=== PATIENT | female | born 1945 | race Caucasian/White ===

== ENCOUNTER → 2016-12-31 | Outpatient (CLI) | payer MEDICARE, MEDICAID | LOC: MAMMO 12:47 | DX: Z12.31 Encounter for screening mammogram for malignant neoplasm of breast (principal); N63 Unspecified lump in breast | CPT/HCPCS: G0202 ==

== ENCOUNTER → 2017-01-02 | Outpatient (CLI) | payer MEDICARE, MEDICAID | LOC: MAMMO 12:22 | DX: N63 Unspecified lump in breast (principal) ==

== ENCOUNTER → 2017-09-09 | Outpatient (CLI) | payer MEDICARE, MEDICAID ==
[2012-03-20 09:34] VITALS: BP 140/81
== END ==
LOC: LAB 09:07
DX: I10 Essential (primary) hypertension (principal); K63.5 Polyp of colon; E78.5 Hyperlipidemia, unspecified; F32.9 Major depressive disorder, single episode, unspecified

== ENCOUNTER → 2018-04-06 | Outpatient (CLI) | payer MEDICARE, MEDICAID ==
[2012-03-20 09:34] VITALS: BP 140/81
[2018-04-06 17:33] LABS: HEMATOCRIT 38.1 % (37.0-47.0); MEAN PLATELET VOLUME 11.2 fl (7.4-10.4); RED BLOOD COUNT 4.63 M/mm3 (4.10-5.30); RED CELL DISTRIBUTION WIDTH 15.3 % (11.5-14.5); WHITE BLOOD COUNT 7.6 K/mm3 (4.8-10.8)
== END ==
LOC: LAB 16:18
PROVIDERS: Family Medicine
DX: I10 Essential (primary) hypertension (principal); E03.9 Hypothyroidism, unspecified; E78.5 Hyperlipidemia, unspecified

== ENCOUNTER → 2018-04-08 | Outpatient (CLI) | payer MEDICARE, MEDICAID ==
[2012-03-20 09:34] VITALS: BP 140/81
== END ==
LOC: RAD 08:28
DX: R29.6 Repeated falls (principal)
CPT/HCPCS: Q9967

== ENCOUNTER → 2018-04-22 | Outpatient (CLI) | payer MEDICARE, MEDICAID ==
[2012-03-20 09:34] VITALS: BP 140/81
== END ==
LOC: MAMMO 09:57
DX: Z12.31 Encounter for screening mammogram for malignant neoplasm of breast (principal); Z98.890 Other specified postprocedural states

== ENCOUNTER → 2018-06-18 | Outpatient (CLI) | payer MEDICARE, MEDICAID ==
[2012-03-20 09:34] VITALS: BP 140/81
== END ==
LOC: RAD 09:48
DX: K43.9 Ventral hernia without obstruction or gangrene (principal); K80.80 Other cholelithiasis without obstruction
CPT/HCPCS: Q9967

== ENCOUNTER → 2019-02-05 | Outpatient (CLI) | payer MEDICARE, MEDICAID ==
[2012-03-20 09:34] VITALS: BP 140/81
== END ==
LOC: RAD 15:28
DX: M19.011 Primary osteoarthritis, right shoulder (principal)

== ENCOUNTER → 2019-02-17 | Outpatient (CLI) | payer MEDICARE, MEDICAID ==
[2012-03-20 09:34] VITALS: BP 140/81
== END ==
LOC: RAD 08:36
DX: M19.011 Primary osteoarthritis, right shoulder (principal)

== ENCOUNTER → 2019-05-10 | Outpatient (CLI) | payer MEDICARE, MEDICAID ==
[2012-03-20 09:34] VITALS: BP 140/81
[2019-05-10 13:47] LABS: EOS # 0.2 (0.04-0.40); HEMATOCRIT 41.7 % (37.0-47.0); HEMOGLOBIN 13.2 g/dL (12.5-16.0); LYMPH# 1.3 (1.50-4.00); MEAN CELL VOLUME 85 fl (78-100); MEAN CORPUSCULAR HEMOGLOBIN 27 pg (27-31); MEAN CORPUSCULAR HGB CONC 32 g/dL (33-37); MEAN PLATELET VOLUME 9.8 fl (7.4-10.4); MONO # 0.7 (0.20-0.80); NEU # 5.3 (1.40-6.50); PLATELET COUNT 226 K/mm3 (130-400); RED BLOOD COUNT 4.91 M/mm3 (4.10-5.30); RED CELL DISTRIBUTION WIDTH 14.4 % (11.5-14.5); WHITE BLOOD COUNT 7.4 K/mm3 (4.8-10.8)
[2019-05-10 14:09] LABS: CALCIUM 9.2 mg/dL (8.3-10.5); TOTAL BILIRUBIN 0.5 mg/dL (0.2-1.2); TOTAL PROTEIN 6.7 g/dL (6.2-8.1)
== END ==
LOC: LAB 13:35
PROVIDERS: Family Medicine
DX: Z01.419 Encounter for gynecological examination (general) (routine) without abnormal findings (principal); E78.5 Hyperlipidemia, unspecified; I10 Essential (primary) hypertension; E55.9 Vitamin D deficiency, unspecified

== ENCOUNTER → 2019-12-21 | Outpatient (CLI) | payer MEDICARE, MEDICAID ==
[2012-03-20 09:34] VITALS: BP 140/81
== END ==
LOC: RAD 15:32 → LAB 15:32
PROVIDERS: Family Medicine
DX: R91.8 Other nonspecific abnormal finding of lung field (principal); R06.00 Dyspnea, unspecified; R42 Dizziness and giddiness; R51 Headache
CPT/HCPCS: Q9967

== ENCOUNTER → 2019-12-27 | Outpatient (CLI) | payer MEDICARE, MEDICAID ==
[2012-03-20 09:34] VITALS: BP 140/81
== END ==
LOC: RAD 14:28
DX: M25.422 Effusion, left elbow (principal)

== ENCOUNTER → 2020-05-10 | Outpatient (CLI) | payer MEDICARE, MEDICAID ==
[2012-03-20 09:34] VITALS: BP 140/81
[2020-05-10 12:22] LABS: ALBUMIN 4.4 g/dL (3.4-4.8); POTASSIUM 4.2 mmol/L (3.5-5.1)
[2020-05-10 12:23] LABS: CALCIUM 9.1 mg/dL (8.3-10.5)
[2020-05-10 12:24] LABS: TOTAL PROTEIN 6.8 g/dL (6.2-8.1)
[2020-05-10 12:25] LABS: EOS # 0.2 (0.04-0.40); EOS % 1.9 % (1.0-5.0); HEMATOCRIT 43.9 % (37.0-47.0); HEMOGLOBIN 13.9 g/dL (12.5-16.0); LYMPH# 1.3 (1.50-4.00); MEAN CELL VOLUME 85 fl (78-100); MEAN CORPUSCULAR HEMOGLOBIN 27 pg (27-31); MEAN CORPUSCULAR HGB CONC 32 g/dL (33-37); MEAN PLATELET VOLUME 10.4 fl (7.4-10.4); MONO # 0.8 (0.20-0.80); NEU # 5.6 (1.40-6.50); PLATELET COUNT 233 K/mm3 (130-400); RED BLOOD COUNT 5.17 M/mm3 (4.10-5.30)
[2020-05-10 12:26] LABS: TOTAL BILIRUBIN 0.5 mg/dL (0.2-1.2)
== END ==
LOC: LAB 11:59
PROVIDERS: Family Medicine
DX: Z01.419 Encounter for gynecological examination (general) (routine) without abnormal findings (principal); E78.5 Hyperlipidemia, unspecified; E55.9 Vitamin D deficiency, unspecified; I10 Essential (primary) hypertension

== ENCOUNTER → 2020-05-10 | Outpatient (CLI) | payer MEDICARE, MEDICAID ==
[2012-03-20 09:34] VITALS: BP 140/81
== END ==
LOC: MAMMO 09:54
DX: Z12.31 Encounter for screening mammogram for malignant neoplasm of breast (principal)

== ENCOUNTER → 2020-05-22 | Outpatient (CLI) | payer MEDICARE, MEDICAID ==
[2012-03-20 09:34] VITALS: BP 140/81
== END ==
LOC: LAB 12:00
DX: Z01.818 Encounter for other preprocedural examination (principal); Z20.828 Contact with and (suspected) exposure to other viral communicable diseases

== ENCOUNTER → 2020-05-25 | Day surgery (SDC) | payer MEDICARE, MEDICAID ==
[2012-03-20 09:34] VITALS: BP 140/81
== END ==
LOC: MSO 07:06
DX: K21.9 Gastro-esophageal reflux disease without esophagitis (principal); K44.9 Diaphragmatic hernia without obstruction or gangrene; K25.3 Acute gastric ulcer without hemorrhage or perforation; K29.70 Gastritis, unspecified, without bleeding; I10 Essential (primary) hypertension; I25.10 Atherosclerotic heart disease of native coronary artery without angina pectoris; M19.90 Unspecified osteoarthritis, unspecified site; E66.01 Morbid (severe) obesity due to excess calories; E78.00 Pure hypercholesterolemia, unspecified; Z90.710 Acquired absence of both cervix and uterus; Z96.641 Presence of right artificial hip joint; Z96.653 Presence of artificial knee joint, bilateral; Z90.49 Acquired absence of other specified parts of digestive tract; Z91.040 Latex allergy status; Z88.6 Allergy status to analgesic agent; Z88.2 Allergy status to sulfonamides; Z20.828 Contact with and (suspected) exposure to other viral communicable diseases
CPT/HCPCS: 00731; J2704; J7120

== ENCOUNTER → 2020-06-27 | Outpatient (CLI) | payer MEDICARE, MEDICAID ==
[2012-03-20 09:34] VITALS: BP 140/81
[2020-06-27 11:04] LABS: EOS # 0.2 (0.04-0.40); EOS % 2.3 % (1.0-5.0); HEMATOCRIT 40.9 % (37.0-47.0); HEMOGLOBIN 12.8 g/dL (12.5-16.0); LYMPH# 1.5 (1.50-4.00); MEAN CELL VOLUME 86 fl (78-100); MEAN CORPUSCULAR HEMOGLOBIN 27 pg (27-31); MEAN CORPUSCULAR HGB CONC 31 g/dL (33-37); MEAN PLATELET VOLUME 9.8 fl (7.4-10.4); MONO # 0.9 (0.20-0.80); NEU # 5.1 (1.40-6.50); PLATELET COUNT 211 K/mm3 (130-400); RED BLOOD COUNT 4.77 M/mm3 (4.10-5.30); WHITE BLOOD COUNT 7.7 K/mm3 (4.8-10.8)
== END ==
LOC: LAB 10:46
PROVIDERS: Family Medicine
DX: M06.9 Rheumatoid arthritis, unspecified (principal)

== ENCOUNTER → 2020-08-10 | Outpatient (CLI) | payer MEDICARE, MEDICAID ==
[2012-03-20 09:34] VITALS: BP 140/81
[2020-08-10 14:05] LABS: EOS # 0.2 (0.04-0.40); EOS % 2.2 % (1.0-5.0); HEMATOCRIT 41.2 % (37.0-47.0); LYMPH# 1.4 (1.50-4.00); MEAN CELL VOLUME 86 fl (78-100); MEAN CORPUSCULAR HEMOGLOBIN 27 pg (27-31); MEAN CORPUSCULAR HGB CONC 32 g/dL (33-37); MEAN PLATELET VOLUME 9.8 fl (7.4-10.4); MONO # 0.9 (0.20-0.80); PLATELET COUNT 220 K/mm3 (130-400); RED BLOOD COUNT 4.82 M/mm3 (4.10-5.30); RED CELL DISTRIBUTION WIDTH 14.6 % (11.5-14.5); WHITE BLOOD COUNT 8.6 K/mm3 (4.8-10.8)
[2020-08-10 14:17] LABS: ALBUMIN 4.3 g/dL (3.4-4.8); POTASSIUM 3.5 mmol/L (3.5-5.1); SODIUM 143 mmol/L (136-145)
[2020-08-10 14:18] LABS: CALCIUM 8.9 mg/dL (8.3-10.5)
[2020-08-10 14:19] LABS: GLUCOSE 102 mg/dL (65-105); TOTAL PROTEIN 7.2 g/dL (6.2-8.1)
[2020-08-10 14:20] LABS: CARBON DIOXIDE 27 mmol/L (23-31)
[2020-08-10 14:21] LABS: TOTAL BILIRUBIN 0.3 mg/dL (0.2-1.2)
[2020-08-10 14:25] LABS: AST-SGOT 20 U/L (5-34)
[2020-08-10 14:26] LABS: ALT/SGPT 17 U/L (0-55)
[2020-08-10 14:32] LABS: TROPONIN-I < 0.03 ng/mL (<0.030)
== END ==
LOC: RAD 13:53
PROVIDERS: Physician Assistant
DX: R05 Cough (principal); R06.02 Shortness of breath; R03.0 Elevated blood-pressure reading, without diagnosis of hypertension; R91.8 Other nonspecific abnormal finding of lung field; H66.92 Otitis media, unspecified, left ear

== ENCOUNTER → 2020-09-07 | Outpatient (CLI) | payer MEDICARE, MEDICAID ==
[2012-03-20 09:34] VITALS: BP 140/81
== END ==
LOC: LAB 12:13
DX: R06.02 Shortness of breath (principal)

== ENCOUNTER → 2020-09-11 | Outpatient (CLI) | payer MEDICARE, MEDICAID ==
[2012-03-20 09:34] VITALS: BP 140/81
== END ==
LOC: VAS 16:27 → RAD 16:30
DX: R06.02 Shortness of breath (principal)

== ENCOUNTER → 2021-03-02 | Outpatient (CLI) | payer MEDICARE, MEDICAID ==
[2012-03-20 09:34] VITALS: BP 140/81
== END ==
LOC: RAD 10:58
DX: K44.9 Diaphragmatic hernia without obstruction or gangrene (principal); K80.80 Other cholelithiasis without obstruction; R91.8 Other nonspecific abnormal finding of lung field

== ENCOUNTER → 2021-03-21 | Outpatient (CLI) | payer MEDICARE, MEDICAID ==
[2012-03-20 09:34] VITALS: BP 140/81
[2021-03-21 14:28] LABS: EOS # 0.2 (0.04-0.40); EOS % 2.4 % (1.0-5.0); HEMATOCRIT 39.7 % (37.0-47.0); HEMOGLOBIN 12.5 g/dL (12.5-16.0); LYMPH# 1.2 (1.50-4.00); MEAN CELL VOLUME 88 fl (78-100); MEAN CORPUSCULAR HEMOGLOBIN 28 pg (27-31); MEAN CORPUSCULAR HGB CONC 32 g/dL (33-37); MEAN PLATELET VOLUME 10.4 fl (7.4-10.4); MONO # 0.7 (0.20-0.80); NEU # 5.1 (1.40-6.50); PLATELET COUNT 218 K/mm3 (130-400); RED BLOOD COUNT 4.53 M/mm3 (4.10-5.30); RED CELL DISTRIBUTION WIDTH 14.1 % (11.5-14.5); WHITE BLOOD COUNT 7.1 K/mm3 (4.8-10.8)
[2021-03-21 14:39] LABS: ALBUMIN 4.2 g/dL (3.4-4.8)
[2021-03-21 14:41] LABS: CALCIUM 8.9 mg/dL (8.3-10.5)
[2021-03-21 14:42] LABS: TOTAL PROTEIN 6.6 g/dL (6.2-8.1)
[2021-03-21 14:44] LABS: TOTAL BILIRUBIN 0.4 mg/dL (0.2-1.2)
[2021-03-21 14:48] LABS: MAGNESIUM 2.18 mg/dL (1.60-2.60)
== END ==
LOC: LAB 13:36
PROVIDERS: Family Medicine
DX: Z13.29 Encounter for screening for other suspected endocrine disorder (principal); K90.89 Other intestinal malabsorption; R53.83 Other fatigue

== ENCOUNTER → 2021-03-22 | Outpatient (CLI) | payer MEDICARE, MEDICAID ==
[2012-03-20 09:34] VITALS: BP 140/81
[2021-03-22 15:24] LABS: URINE APPEARANCE CLEAR; URINE BILIRUBIN NEGATIVE (NEGATIVE); URINE BLOOD 50 ery/uL (NEGATIVE); URINE COLOR YELLOW; URINE GLUCOSE NEGATIVE (NEGATIVE); URINE KETONE NEGATIVE (NEGATIVE); URINE LEUKOCYTE ESTERASE NEGATIVE (NEGATIVE); URINE NITRATE NEGATIVE (NEGATIVE); URINE PROTEIN(semi-quant) TRACE mg/dL (NEGATIVE); URINE UROBILINOGEN NORMAL (NORMAL)
== END ==
LOC: LAB 14:34
PROVIDERS: Family Medicine
DX: Z13.29 Encounter for screening for other suspected endocrine disorder (principal); K90.9 Intestinal malabsorption, unspecified

== ENCOUNTER → 2021-04-23 | Outpatient (CLI) | payer MEDICARE, MEDICAID ==
[2012-03-20 09:34] VITALS: BP 140/81
== END ==
LOC: RAD 09:54
DX: N18.32 Chronic kidney disease, stage 3b (principal)

== ENCOUNTER → 2021-05-30 | Outpatient (CLI) | payer MEDICARE, MEDICAID | LOC: MAMMO 09:53 | DX: Z12.31 Encounter for screening mammogram for malignant neoplasm of breast (principal) ==

== ENCOUNTER → 2021-08-10 | Outpatient (CLI) | payer MEDICARE, MEDICAID | LOC: RAD 12:35 | DX: M79.605 Pain in left leg (principal); M25.562 Pain in left knee; M79.89 Other specified soft tissue disorders; Z96.9 Presence of functional implant, unspecified ==

== ENCOUNTER → 2021-08-17 | Outpatient (CLI) | payer MEDICARE, MEDICAID | LOC: RAD 09:54 | DX: S99.922D Unspecified injury of left foot, subsequent encounter (principal) ==

== ENCOUNTER → 2021-09-20 | Outpatient (CLI) | payer MEDICARE, MEDICAID | LOC: RAD 13:07 | DX: K44.9 Diaphragmatic hernia without obstruction or gangrene (principal); K21.9 Gastro-esophageal reflux disease without esophagitis ==

== ENCOUNTER → 2021-10-02 | Outpatient (CLI) | payer MEDICARE, MEDICAID ==
[2021-10-02 10:54] LABS: BASO # 0.02 K/mm3 (0.02-0.10); EOS # 0.19 K/mm3 (0.04-0.40); EOS % 2.5 % (1.0-5.0); HEMATOCRIT 39.7 % (37.0-47.0); HEMOGLOBIN 12.4 g/dL (12.5-16.0); LYMPH# 0.98 K/mm3 (1.50-4.00); MEAN CELL VOLUME 86 fl (78-100); MEAN CORPUSCULAR HEMOGLOBIN 27 pg (27-31); MEAN CORPUSCULAR HGB CONC 31 g/dL (33-37); MEAN PLATELET VOLUME 10.8 fl (7.4-10.4); MONO # 0.75 K/mm3 (0.20-0.80); NEU # 5.51 K/mm3 (1.40-6.50); PLATELET COUNT 195 K/mm3 (130-400); RED BLOOD COUNT 4.64 M/mm3 (4.10-5.30); RED CELL DISTRIBUTION WIDTH 14.6 % (11.5-14.5); WHITE BLOOD COUNT 7.5 K/mm3 (4.8-10.8)
[2021-10-02 11:04] LABS: ALBUMIN 3.9 g/dL (3.4-4.8); POTASSIUM 4.3 mmol/L (3.5-5.1)
[2021-10-02 11:07] LABS: TOTAL PROTEIN 6.7 g/dL (6.2-8.1)
[2021-10-02 11:09] LABS: TOTAL BILIRUBIN 0.4 mg/dL (0.2-1.2)
[2021-10-02 12:36] LABS: PARTIAL THROMBOPLASTIN TIME 24.1 SECONDS (21.0-32.0)
[2021-10-02 14:15] LABS: PROTHROMBIN TIME 10.2 SECONDS (9.0-12.0)
== END ==
LOC: LAB 10:00
PROVIDERS: Physician Assistant
DX: Z01.812 Encounter for preprocedural laboratory examination (principal)

== ENCOUNTER → 2021-12-26 | Day surgery (SDC) | payer MEDICARE, MEDICAID | END | disposition home or self-care (01) | LOC: MSO 06:38 | DX: H25.813 Combined forms of age-related cataract, bilateral (principal); I10 Essential (primary) hypertension; E78.5 Hyperlipidemia, unspecified; K21.9 Gastro-esophageal reflux disease without esophagitis; K44.9 Diaphragmatic hernia without obstruction or gangrene; F41.9 Anxiety disorder, unspecified; F32.A Depression, unspecified; Z90.49 Acquired absence of other specified parts of digestive tract; Z79.899 Other long term (current) drug therapy | CPT/HCPCS: 00142; J0171; J2250; V2632 ==

== ENCOUNTER → 2022-01-23 | Day surgery (SDC) | payer MEDICARE, MEDICAID | LOC: MSO 06:16 | DX: H25.812 Combined forms of age-related cataract, left eye (principal) | CPT/HCPCS: 00142; J0171; J2250; V2632 ==

== ENCOUNTER → 2022-06-20 | Outpatient (CLI) | payer MEDICARE, MEDICAID ==
[2022-06-20 15:56] LABS: BASO # 0.03 K/mm3 (0.02-0.10); EOS # 0.14 K/mm3 (0.04-0.40); EOS % 1.7 % (1.0-5.0); HEMATOCRIT 40.9 % (37.0-47.0); LYMPH# 1.62 K/mm3 (1.50-4.00); MEAN CELL VOLUME 87 fl (78-100); MEAN CORPUSCULAR HEMOGLOBIN 28 pg (27-31); MEAN CORPUSCULAR HGB CONC 32 g/dL (33-37); MEAN PLATELET VOLUME 10.1 fl (7.4-10.4); NEU # 5.53 K/mm3 (1.40-6.50); PLATELET COUNT 212 K/mm3 (130-400); RED CELL DISTRIBUTION WIDTH 14.4 % (11.5-14.5); WHITE BLOOD COUNT 8.3 K/mm3 (4.8-10.8)
[2022-06-20 16:07] LABS: ALBUMIN 4.2 g/dL (3.4-4.8); POTASSIUM 4.2 mmol/L (3.5-5.1)
[2022-06-20 16:08] LABS: CALCIUM 9.4 mg/dL (8.3-10.5)
[2022-06-20 16:09] LABS: TOTAL PROTEIN 7.1 g/dL (6.2-8.1)
[2022-06-20 16:11] LABS: TOTAL BILIRUBIN 0.5 mg/dL (0.2-1.2)
== END ==
LOC: LAB 15:38
PROVIDERS: Physician Assistant
DX: Z00.00 Encounter for general adult medical examination without abnormal findings (principal); Z13.29 Encounter for screening for other suspected endocrine disorder; K90.9 Intestinal malabsorption, unspecified

== ENCOUNTER → 2022-06-25 | Outpatient (CLI) | payer MEDICARE, MEDICAID | LOC: MAMMO 13:44 | DX: Z12.31 Encounter for screening mammogram for malignant neoplasm of breast (principal) ==

== ENCOUNTER → 2022-06-25 | Outpatient (CLI) | payer MEDICARE, MEDICAID | LOC: RAD 13:49 → MAMMO 13:49 | DX: Z13.820 Encounter for screening for osteoporosis (principal) ==

== ENCOUNTER → 2024-03-10 | Outpatient (CLI) | payer MEDICARE | LOC: RAD 09:31 → MAMMO 10:00 | DX: Z78.0 Asymptomatic menopausal state (principal) ==

== ENCOUNTER → 2024-06-09 | Outpatient (CLI) | payer MEDICARE | LOC: RAD 10:35 | DX: M51.36 Other intervertebral disc degeneration, lumbar region (principal); R10.9 Unspecified abdominal pain ==

== ENCOUNTER → 2024-08-09 | Outpatient (CLI) | payer MEDICARE | LOC: MAMMO 10:28 | DX: Z12.31 Encounter for screening mammogram for malignant neoplasm of breast (principal) ==

== ENCOUNTER → 2024-08-24 | Outpatient (CLI) | payer MEDICARE ==
[~2024-08-24] MED LIST: Gadoterate 20 ML VIAL IV ONE
== END ==
LOC: RAD 09:36
DX: M51.36 Other intervertebral disc degeneration, lumbar region (principal); M48.00 Spinal stenosis, site unspecified; M51.35 Other intervertebral disc degeneration, thoracolumbar region; M47.816 Spondylosis without myelopathy or radiculopathy, lumbar region
CPT/HCPCS: A9575

== ENCOUNTER → 2024-09-21 | Day surgery (SDC) | payer MEDICARE ==
[~2024-09-21] MED LIST changes: -Gadoterate 20 ML VIAL IV ONE; +Iohexol 300 - 10 ML VIAL IU ONE; +methylPREDNISolone acetate 80 MG/ML VIAL IJ ONE
== END ==
LOC: MSO 13:04
DX: M46.1 Sacroiliitis, not elsewhere classified (principal); M54.50 Low back pain, unspecified; M53.3 Sacrococcygeal disorders, not elsewhere classified
CPT/HCPCS: J0665; J1010; Q9967